=== PATIENT | male | born 1965 | race Caucasian/White ===

== ENCOUNTER 2017-06-17 12:04 | Emergency (ER) | payer MEDICARE ==
[~2017-06-17] VITALS: Ht 190.5 cm; Wt 142.9 kg
[~2017-06-17 12:04] MED LIST: ABILIFY10 MG PO; BUSPAR5 MG PO; PRISTIQ100 MG PO; SEROQUEL100 MG PO; VALIUM10 MG PO; ZANAFLEX4 M1 PO
[2017-06-17] MEDS ORDERED: NEURONTIN300 MG PO (13:34)
== END 2017-06-17 13:44 | disposition home or self-care (01) ==
LOC: ED 12:04
DX: Z76.0 Encounter for issue of repeat prescription (principal); F17.200 Nicotine dependence, unspecified, uncomplicated; Z79.899 Other long term (current) drug therapy; Z88.0 Allergy status to penicillin

== ENCOUNTER 2024-07-11 23:59 | Emergency (ER) | payer BC ==
[~2024-07-11] VITALS: Ht 190.5 cm; Wt 88.0 kg
[~2024-07-11 23:59] MED LIST changes: +NEURONTIN300 MG PO
[2024-07-12] MEDS ORDERED: Dexamethasone Sodium Phospha 20 MG/5 ML VIAL IM ONE (00:15)
[2024-07-12] MEDS ORDERED: Ketorolac Tromethamine 60 MG/2 ML VIAL IM ONE (00:15)
[2024-07-12] MEDS ORDERED: Cyclobenzaprine Hydrochlorid 10 MG TAB PO ONE (00:15)
[2024-07-12] MEDS ORDERED: MEDROL DOSEPAK4 MG PO (01:23)
[2024-07-12] MEDS ORDERED: MELOXICAM15 MG PO (01:23)
[2024-07-12] MEDS ORDERED: CYCLOBENZAPRINE5 M3 PO (01:23)
== END 2024-07-12 01:29 | disposition home or self-care (01) ==
LOC: ED 23:59
DX: M62.838 Other muscle spasm (principal); F32.A Depression, unspecified; Z88.0 Allergy status to penicillin; Z98.890 Other specified postprocedural states; Z87.891 Personal history of nicotine dependence

== ENCOUNTER 2024-07-27 09:46 | Emergency (ER) | payer OTHER ==
[~2024-07-27] VITALS: Wt 88.0 kg
[~2024-07-27 09:46] MED LIST changes: +CYCLOBENZAPRINE5 M3 PO; +MEDROL DOSEPAK4 MG PO; +MELOXICAM15 MG PO
[2024-07-27] MEDS ORDERED: Dexamethasone Sodium Phospha 20 MG/5 ML VIAL IM ONE (12:45)
== END 2024-07-27 13:13 | disposition home or self-care (01) ==
LOC: ED 09:46
DX: M50.30 Other cervical disc degeneration, unspecified cervical region (principal); Z88.0 Allergy status to penicillin; Z98.890 Other specified postprocedural states

== ENCOUNTER 2024-08-11 13:53 | Emergency (ER) | payer OTHER ==
[~2024-08-11] VITALS: Ht 190.5 cm; Wt 88.0 kg
[2024-08-11 14:46] LABS: BASO % 0.4 % (0.0-1.0); EOS % 0.5 % (1.0-4.0); HEMATOCRIT 43.7 % (42.0-52.0); LYMPH % 36.4 % (27.0-41.0); MEAN CELL VOLUME 87.9 fl (80.0-94.0); MEAN CORPUSCULAR HGB 29.2 pg (27.0-31.0); MEAN CORPUSCULAR HGB CONC 33.2 g/dl (33.0-37.0); MONO # 0.5 10*3/uL (0.1-1.0); MONO % 8.5 % (3.0-9.0); NEUT % 53.8 % (47.0-73.0); PLATELET COUNT AUTOMATED 160 10*3/uL (130-400); RED BLOOD COUNT 4.97 10*6/uL (4.50-5.90); RED CELL DISTRI WIDTH 14.4 % (0-14.5); WHITE BLOOD COUNT 5.5 10*3/uL (4.8-10.8)
[2024-08-11 15:02] LABS: ACT PARTIAL THROMBO TIME 30.9 SECONDS (20.0-32.1)
[2024-08-11 15:14] LABS: ALKALINE PHOSPHATASE 76 U/L (46-116); BUN 13 mg/dl (9-23); CHLORIDE 101 mmol/L (98-107); ETHYL ALCOHOL < 3.0 mg/dl (<3); LIPASE 47 U/L (12-53); POTASSIUM 4.7 mmol/L (3.4-5.1); SGPT/ALT 18 U/L (5-49); TOTAL PROTEIN 6.5 gm/dL (6.0-8.0)
[2024-08-11 15:21] LABS: BILIRUBIN Negative (Negative); BLOOD Negative (Negative); CLARITY Clear (Clear); COLOR Yellow (Yellow); GLUCOSE Negative (Negative); KETONE Negative (Negative); LEUKO ESTERASE Negative (Negative); NITRITE Negative (Negative); PH 5.5 (4.5-8.0); UROBILINOGEN 0.2 E.U./dl (0.0-1.0)
[2024-08-11 15:30] LABS: MUCOUS 1+; WBC 0-2 wbc/hpf (0-5)
[2024-08-11 15:33] LABS: URINE AMPHETAMINES Negative (1000ng/ml); URINE BARBITURATES Negative (200ng/ml); URINE BENZODIAZEPINES Negative (200ng/ml); URINE CANNABINOIDS (THC) Positive (50ng/ml); URINE COCAINE Negative (300ng/ml); URINE METHADONE Negative (300ng/ml); URINE OPIATES Negative (300ng/ml); URINE PHENCYCLIDINE Negative (25ng/ml)
[2024-08-11] MEDS ORDERED: PREDNISONE20 M1 PO (16:41)
== END 2024-08-11 16:50 | disposition home or self-care (01) ==
LOC: ED 13:53
PROVIDERS: Internal Medicine
DX: G51.0 Bell's palsy (principal); F32.A Depression, unspecified; Z88.0 Allergy status to penicillin; Z98.890 Other specified postprocedural states; Z87.891 Personal history of nicotine dependence; Z79.899 Other long term (current) drug therapy; R10.2 Pelvic and perineal pain

== ENCOUNTER 2024-10-09 10:57 | Emergency (ER) | payer OTHER ==
[~2024-10-09] VITALS: Wt 88.0 kg
[~2024-10-09 10:57] MED LIST changes: +PREDNISONE20 M1 PO
[2024-10-09] MEDS ORDERED: Acetaminophen/Oxycodone 5 MG/325 MG TABLET PO ONE (11:05)
[2024-10-09] MEDS ORDERED: MELOXICAM15 MG PO (11:40)
== END 2024-10-09 11:46 | disposition home or self-care (01) ==
LOC: ED 10:57
DX: M54.2 Cervicalgia (principal); R51.9 Headache, unspecified; Z88.0 Allergy status to penicillin; Z98.890 Other specified postprocedural states; V47.5XXA Car driver injured in collision with fixed or stationary object in traffic accident, initial encounter; Y93.89 Activity, other specified; Y92.410 Unspecified street and highway as the place of occurrence of the external cause; Y99.8 Other external cause status

== ENCOUNTER → 2024-12-16 | Outpatient (CLI) | payer OTHER | END | disposition home or self-care (01) | LOC: RAD 11:15 | PROVIDERS: ATTEND Chiropractor Orthopedic | DX: S23.3XXA Sprain of ligaments of thoracic spine, initial encounter (principal); M43.12 Spondylolisthesis, cervical region; M51.34 Other intervertebral disc degeneration, thoracic region; M48.03 Spinal stenosis, cervicothoracic region; X58.XXXA Exposure to other specified factors, initial encounter; Y93.89 Activity, other specified; Y92.89 Other specified places as the place of occurrence of the external cause; Y99.8 Other external cause status ==